=== PATIENT | male | born 1995 | race Caucasian/White ===

== ENCOUNTER 2023-06-11 19:23 | Emergency (ER) | payer MEDICAID ==
[~2023-06-11] VITALS: Ht 154.9 cm; Wt 74.6 kg
[2023-06-11 19:35] VITALS: TEMP 98.5
[2023-06-11] MEDS ORDERED: ACETAMINOPHEN/CODEINE 300-30 MG TABLET PO ONE (21:30)
[2023-06-11] MEDS ORDERED: METHOCARBAMOL 500 MG TABLET PO ONE (21:30)
[2023-06-11] MEDS ORDERED: KETOROLAC TROMETHAMINE 60 MG/2 ML VIAL IM ONE (21:30)
[2023-06-11] MEDS ORDERED: ACET-2080 PO (22:08)
[2023-06-11] MEDS ORDERED: METH-659 PO (22:08)
[2023-06-11] MEDS ORDERED: IBUP-1554 PO (22:08)
[2023-06-11 22:22] VITALS: BP 128/73; PULSE 79; RESP 18
== END 2023-06-11 22:28 | disposition home or self-care (01) ==
LOC: EMS 19:24
DX: S39.012A Strain of muscle, fascia and tendon of lower back, initial encounter (principal); X58.XXXA Exposure to other specified factors, initial encounter; Y93.89 Activity, other specified; Y92.89 Other specified places as the place of occurrence of the external cause; Y99.8 Other external cause status
CPT/HCPCS: 99283; 96372; J1885